=== PATIENT | female | born 1975 | race Caucasian/White ===

== ENCOUNTER 2020-05-23 15:19 | Emergency (ER) | payer OTHER ==
[2020-05-23 15:26] VITALS: BP 154/95; PULSE 98; TEMP 98.6; BMI 39.4
--- NOTE | 2020-05-23 15:30 | PDOC ---
Rapid Medical Evaluation Chief Complaint: CVA/TIA Time Seen by Provider: 05/23/20 15:22 Medical Evaluation: Allergies Allergy/AdvReac Type Severity Reaction Status Date / Time No Known Drug Allergies Allergy Verified 08/08/15 06:54 Vital Signs Temp Pulse Resp BP Pulse Ox 98.6 F 98 H 20 154/95 98 05/23/20 15:24 05/23/20 15:24 05/23/20 15:24 05/23/20 15:24 05/23/20 15:24 05/23/20 15:28 Pt with PMH of DM. presents for evaluation of a R sided facial droop starting at 1pm this afternoon. Pt was talking with her sister on facetime who noticed the droop. Denies headache, lightheadedness. Exam: R sided facial droop. Able to move forehead, eye closes tightly Orders: defer to provider Pt to proceed to the ER for further evaluation Discharge Disposition - Diagnosis Facial droop - Referrals - Patient Instructions - Post Discharge Activity
--- NOTE | 2020-05-23 15:48 | PDOC ---
Attending Attestation - Resident Resident Name: Franco Miguel - ED Attending Attestation I have performed the following: I have examined & evaluated the patient, The case was reviewed & discussed with the resident, I agree w/resident's findings & plan, Exceptions are as noted - HPI HPI: 05/23/20 15:49 45y F hx of DM endometrial ca sp hysterectomy presents with R facial weakness. The patient States she was in her usual state of health she was on A face time call with the sister who noticed her facial weakness and told her to go to the ER to get checked out. Patient states that she feels fine otherwise she denies any fever, chills, cough, headache, dizziness, vision changes, focal numbness, tingling, weakness in the extremities. No recent travel or known sick contacts. No known recent insect bites or tick bites exam: GENERAL: The patient is awake, alert, and fully oriented, Nontoxic - in no acute distress. HEAD: Normocephalic, atraumatic. EYES: extraocular movements intact, sclera anicteric, conjunctiva clear. ENT: Normal voice, Moist mucous membranes. NECK: Normal range of motion, supple LUNGS: Breath sounds equal, clear to auscultation bilaterally. No wheezes, no rhonchi, no rales. HEART: Regular rate and rhythm, normal S1 and S2 without murmur, rub or gallop. ABDOMEN: Soft, nontender, No guarding, no rebound. No CVA tenderness EXTREMITIES: Normal range of motion, no edema. PSYCH: Normal mood, normal affect. SKIN: Warm, Dry, normal turgor, NEuro exam: Mild flattening of L nasolabial fold at rest, mild weakness with complete closure of eye lids good forhead function strength symmetric on upper.lower extremities normal gait sensation intact symmetrically on face deminished taste on L anterior 2/3 tongue ddx - cva vs mild bells palsy will obtain basic lab work will obtain ct head will start pt on antiretrovirals/steroids 05/23/20 17:29 ct neg for acute disease labs noted for midly elevated lfts, will have pt fu with her pmd to have this monitored will refer to PMD/Neuro for further evaluation of beels palsy return precautions were discussed 05/23/20 17:32 - Physicial Exam PE: 05/29/20 08:16 see above - Medical Decision Making 05/29/20 08:16 see above Discharge - Discharge Information Problems reviewed: Yes Clinical Impression/Diagnosis: Elevated transaminase level, Lira's palsy Condition: Stable Disposition: HOME - Additional Discharge Information Prescriptions: Carboxymethylcellulose Sodium [Artificial Tears] 15 ml OP TID PRN #1 bottle PRN Reason: Dry Eyes Prednisone [Prednisone 50 MG TABLETS] 60 mg PO AC 5 Days #5 tablet Valacyclovir HCl [Valacyclovir] 1,000 mg PO TID 10 Days #30 tablet - Follow up/Referral Referrals: Rudi Clemente [Primary Care Provider] - Margarito Brown MD [Staff Physician] - Brent Lucero MD [Staff Physician] - - Patient Discharge Instructions Additional Instructions: You were seen in the ED for complaints of facial droop In the ED you were evaluated with Head CT, Lab work, and EKG Your results were negative except for a slightly elevated liver enzyme levels There does not appear to be an acute need for immediate hospitalization. You are advised to follow up with your Primary Care Physician within 1 week. You were given a referral to Neurology for facial droop within 1 week. You were given a referral to GI for further evaluation of your liver enzymes. You were given a prescription for Prednisone, Valacyclovir, and Eye drops. Use as prescribed. Return to the ED if symptoms worsen and/or you experience headache, double vision, worsening weakness, slurred speech, nausea, vomiting, dizziness. - Post Discharge Activity
[2020-05-23] MEDS ORDERED: SODIUM CHLORIDE 1,000 ML IV SCH (16:00)
[2020-05-23 16:31] LABS: BASO % 1.2 % (0-2.0); EOS % 3.1 % (0-4.5); HEMATOCRIT 42.2 % (32.4-45.2); HEMOGLOBIN 13.9 GM/dL (10.7-15.3); MCH 28.3 pg (25.7-33.7); MCHC 32.9 g/dl (32.0-36.0); MEAN PLT VOLUME 10.3 fl (7.5-11.1); NEUT % 61.7 % (42.8-82.8); PLATELET COUNT 221 K/MM3 (134-434); RBC 4.91 M/mm3 (3.60-5.2); RDW 13.1 % (11.6-15.6); WHITE BLOOD COUNT 9.9 K/mm3 (4.0-10.0)
--- NOTE | 2020-05-23 16:41 | PDOC ---
History of Present Illness - General Chief Complaint: CVA/TIA Stated Complaint: FACIAL DROOP Time Seen by Provider: 05/23/20 15:22 - History of Present Illness Initial Comments: 45 yo female with PMH of DM, endometrial cancer, and hysterectomy presents with right sided facial droop. Her sister noticed her facial droop 2 hours ago and told her to come in. She feels her right mouth is uneven when she converses. She denies any tick bites. She denies any fevers, chills, rashes, dizziness, nausea, vomiting, cp, sob. Past History - Medical History Allergies/Adverse Reactions: Allergies Allergy/AdvReac Type Severity Reaction Status Date / Time No Known Drug Allergies Allergy Verified 08/08/15 06:54 Home Medications: Ambulatory Orders metFORMIN HCL [Metformin HCl] 500 mg PO BID 07/07/15 Carboxymethylcellulose Sodium [Artificial Tears] 15 ml OP BID 10 Days #1 bottle 05/23/20 Prednisone [Prednisone 50 MG TABLETS] 60 mg PO AC 5 Days #5 tablet 05/23/20 Valacyclovir HCl [Valacyclovir] 1,000 mg PO TID 10 Days #30 tablet 05/23/20 Anemia: No Asthma: No Cancer: No Cardiac Disorders: No CVA: No COPD: No CHF: No Dementia: No Diabetes: Yes (BORDERLINE) GI Disorders: No Disorders: No HTN: No Hypercholesterolemia: No Liver Disease: Yes (FATTY LIVER) Seizures: No Thyroid Disease: Yes (THYROID NODULE) - Surgical History Abdominal Surgery: No Appendectomy: No Cardiac Surgery: No Cholecystectomy: No Lung Surgery: No Neurologic Surgery: No Orthopedic Surgery: No - Immunization History Immunization Up to Date: Yes - Psycho-Social/Smoking History Smoking History: Never smoked Have you smoked in the past 12 months: No - Substance Abuse Hx (Audit-C & DAST Scrn) How often the patient has a drink containing alcohol: Never Score: In Men: 4 or > Positive; In Women: 3 or > Positive: 0 Screen Result (Pos requires Nsg. Audit-10AR): Negative Neuro Specific PMHX - Complaint Specific PMHX Glaucoma: No Laminectomy: No Migraine: No Multiple Sclerosis: No Neuropathy: No TIA: No Review of Systems - Review of Systems Able to Perform ROS?: Yes Constitutional: No: Chills, Diaphoresis, Fever HEENTM: No: Recent change in vision, Double Vision Respiratory: No: Cough, Shortness of Breath Cardiac (ROS): No: Chest Pain, Irregular Heart Rate, Palpitations ABD/GI: No: Constipated, Diarrhea, Nausea, Vomiting : No: Burning, Dysuria, Discharge Musculoskeletal: No: Joint Pain, Joint Stiffness Integumentary: No: Bruising, Lesions, Lumps, Pallor Neurological: No: Headache, Tingling, Tremors Psychiatric: No: Anxiety, Depression, Mood Swings Endocrine: No: Intolerance to Cold, Intolerance to Heat, Increased Urine *Physical Exam - Vital Signs Last Vital Signs Temp Pulse Resp BP Pulse Ox 98.6 F 98 H 20 154/95 98 05/23/20 15:24 05/23/20 15:24 05/23/20 15:24 05/23/20 15:24 05/23/20 15:24 - Physical Exam General Appearance: Yes: Appropriately Dressed. No: Apparent Distress HEENT: positive: EOMI, CHLOE, Normal Voice, Other (Right nasolabial fold drooping. Right lip corner drooping. Inability to taste on right side of anterior tongue. ) Neck: positive: Tender, Trachea midline Respiratory/Chest: positive: Lungs Clear, Normal Breath Sounds. negative: Chest Tender, Respiratory Distress Cardiovascular: positive: Regular Rhythm, Regular Rate, S1, S2. negative: Edema, JVD, Murmur Gastrointestinal/Abdominal: positive: Flat, Soft. negative: Tender Musculoskeletal: negative: CVA Tenderness Extremity: positive: Normal Capillary Refill, Normal Inspection, Normal Range of Motion Integumentary: positive: Normal Color, Dry, Warm Neurologic: positive: anchor tack puller II-XII NML intact, Fully Oriented, Alert, Normal Mood/Affect, Normal Response, Motor Strength 5/5, Responsive, Facial Droop. negative: Abnormal Cranial NS, Finger to Nose, Confused, Disoriented NIH Stroke Scale - Initial Evaluation Level of consciousness: Alert Ask patient the month and their age: Answers both correctly Ask patient to open & close eyes; make fist and let go: Obeys both correctly Best gaze (horizontal eye movement): Normal Visual field testing: No visual field loss Facial paresis (Show teeth/raise eyebrows/close eyes tight): Minor paralysis (flattened nasolabial fold, asymmetry on smiling) Motor Function: Left Arm: Normal Motor Function: Right Arm: Normal (extends arm 90 (or 45) degrees for 10 seconds without drift Motor Function: Left Leg: Normal (extends leg 30 degrees for 5 seconds without drift) Motor Function: Right Leg: Normal (extends leg 30 degrees for 5 seconds without drift) Limb Ataxia: No ataxia Sensory(Use pinprick test arms,legs,trunk,face/side to side): Normal Best language (Describe picture, name items, read sentences): No Aphasia Dysarthria (read several words): Normal articulation Extinction and Inattention: No abnormality - Total Score NIH Stroke Scale Score: 1 Critical Care Time/MDM Note - Medical Decision Making Note: 45 yo female with PMH of DM, endometrial cancer, hysterectomy presents with 2 hr hx of right sided lower facial droop. CT head was negative for stroke. EKG was negative. CBC and CMP revealed elevated liver enzymes. Presentation most consistent with loaiza's palsy. Pt discharged with artificial tears, prednisone, and valacyclovir. Told to follow up with GI and neuro. Stable for discharge. Discharge - Discharge Information Problems reviewed: Yes Clinical Impression/Diagnosis: Facial droop, Elevated transaminase level Condition: Stable Disposition: HOME - Admission No - Additional Discharge Information Prescriptions: Carboxymethylcellulose Sodium [Artificial Tears] 15 ml OP BID 10 Days #1 bottle Prednisone [Prednisone 50 MG TABLETS] 60 mg PO AC 5 Days #5 tablet Valacyclovir HCl [Valacyclovir] 1,000 mg PO TID 10 Days #30 tablet - Follow up/Referral Referrals: Rudi Clemente [Primary Care Provider] - Brent Lucero MD [Staff Physician] - Margarito Brown MD [Staff Physician] - - Patient Discharge Instructions Additional Instructions: You were seen in the ED for complaints of facial droop In the ED you were evaluated with Head CT, Lab work, and EKG Your results were negative except for a slightly elevated liver enzyme levels There does not appear to be an acute need for immediate hospitalization. You are advised to follow up with your Primary Care Physician within 1 week. You were given a referral to Neurology for facial droop within 1 week. You were given a referral to GI for further evaluation of your liver enzymes. You were given a prescription for Prednisone, Valacyclovir, and Eye drops. Use as prescribed. Return to the ED if symptoms worsen and/or you experience headache, double vision, worsening weakness, slurred speech, nausea, vomiting, dizziness. - Post Discharge Activity
[2020-05-23 16:55] LABS: BILIRUBIN,TOTAL 0.5 mg/dL (0.2-1); BLOOD UREA NITROGEN 10.6 mg/dL (7-18); CALCIUM 9.5 mg/dL (8.5-10.1); CREATININE 0.8 mg/dL (0.55-1.3); INR 1.07 (0.83-1.09); PROTHROMBIN TIME (PATIENT) 12.6 SEC (9.7-13.0); TOT PROT 7.8 g/dl (6.4-8.2)
== END 2020-05-23 17:40 | disposition home or self-care (01) ==
LOC: JER 15:19
DX: R29.810 Facial weakness (principal); G51.0 Bell's palsy; R74.0 Nonspecific elevation of levels of transaminase and lactic acid dehydrogenase [LDH]
CPT/HCPCS: 36415; 70450-TC; 80053; 85025; 85610; 85730; 86850; 86900; 86901; 99285-25

== ENCOUNTER 2021-04-16 11:45 | Emergency (ER) | payer OTHER ==
[2021-04-16 11:57] VITALS: BP 135/80; PULSE 77; TEMP 98; BMI 34.9
== END 2021-04-16 13:13 | disposition home or self-care (01) ==
LOC: JER 11:45
DX: G51.0 Bell's palsy (principal)
CPT/HCPCS: 82962; 99283-25